=== PATIENT | male | born 1960 | race Caucasian/White ===

== ENCOUNTER 2025-07-01 18:18 | Inpatient (IN) | payer BC ==
[2025-07-01 18:34] VITALS: BMI 21.2
[2025-07-01] MEDS ORDERED: DIPHTH,PERTUSS(ACELL),TET 0.5 ML DISP.SYRIN IM ONE (18:45)
[2025-07-01] MEDS: DIPHTH,PERTUSS(ACELL),TET 0.5 ML DISP.SYRIN IM ONE (18:56)
[2025-07-01 19:21] LABS: ABSOLUTE IMMATURE GRANULOCYTES 0.11 x10^3/uL (0.0-0.031); BASOPHILS # 0.04 x10^3/uL (0.01-0.08); EOSINOPHIL % 0.1 % (0.8-7.0); EOSINOPHILS # 0.01 x10^3/uL (0.04-0.54); MCHC 33.1 g/dl (32.3-36.5); MEAN CELL VOLUME 97.1 fl (79.0-92.2); MEAN PLT VOLUME 10.0 fl (9.4-12.4); MONOCYTE # 0.55 x10^3/uL (0.30-0.82); MONOCYTE % 5.0 % (5.3-12.2); RDW 12.0 % (12.2-16.4)
[2025-07-01 19:29] LABS: INR 1.09 (0.83-1.09); PROTHROMBIN TIME (PATIENT) 11.9 SEC (9.7-13.0)
[2025-07-01 19:42] LABS: GLUCOSE,RANDOM 95.0 mg/dL (74-106); TOT PROT 8.4 g/dl (6.4-8.2)
[2025-07-01 19:44] LABS: CO2 25.0 mmol/L (21-32)
[2025-07-01 19:45] LABS: ALK PHOS 79.0 U/L (40-150)
[2025-07-01 19:48] LABS: CREATININE 1.12 mg/dL (0.55-1.3); SGOT/AST 30.0 U/L (5-34); SGPT/ALT 24.0 U/L (0-55)
[2025-07-01 20:10] LABS: HIV INTERPRETATION NEGATIVE (NEGATIVE)
[2025-07-01 20:11] LABS: ABSOLUTE IMMATURE GRANULOCYTES 0.09 x10^3/uL (0.0-0.031); BASOPHILS # 0.03 x10^3/uL (0.01-0.08); EOSINOPHIL % 0.1 % (0.8-7.0); EOSINOPHILS # 0.01 x10^3/uL (0.04-0.54); MCHC 32.9 g/dl (32.3-36.5); MEAN CELL VOLUME 97.2 fl (79.0-92.2); MEAN PLT VOLUME 9.9 fl (9.4-12.4); MONOCYTE # 0.66 x10^3/uL (0.30-0.82); MONOCYTE % 5.7 % (5.3-12.2); RDW 12.2 % (12.2-16.4)
[2025-07-01] MEDS ORDERED: MORPHINE SULFATE 2 MG/ML SYRINGE ONE (20:11)
[2025-07-01 20:14] LABS: EPI CELLS 3 /uL (0-25.1); HYALINE CASTS 1 /uL (0-3.1); URINE APPEARANCE CLEAR; URINE BACTERIA 3 /uL (0-1359); URINE BILIRUBIN NEGATIVE (NEGATIVE); URINE COLOR YELLOW; URINE GLUCOSE (UA) NEGATIVE (NEGATIVE); URINE KETONE NEGATIVE (NEGATIVE); URINE LEUK ESTERASE NEGATIVE (NEGATIVE); URINE NITRITE NEGATIVE (NEGATIVE); URINE PROTEIN TRACE (NEGATIVE); URINE RBC 14 /uL (0-23.9); URINE UROBILINOGEN 0.2 mg/dL (0.2-1.0); URINE WBC 2 /uL (0-25.8)
[2025-07-01 20:19] LABS: INR 1.11 (0.83-1.09); PROTHROMBIN TIME (PATIENT) 12.1 SEC (9.7-13.0)
[2025-07-01 20:21] LABS: ACTIVATED PTT 26.2 SECONDS (25.2-36.5)
[2025-07-01] MEDS: morphine CARPU-JECT 4 MG/1 ML DISP.SYRIN SQ ONE (20:28)
[2025-07-01] MEDS: ACETAMINOPHEN 1000 MG/100 ML BAG IVPB ONE (20:29)
[2025-07-01 20:30] LABS: GLUCOSE,RANDOM 102.0 mg/dL (74-106)
[2025-07-01] MEDS ORDERED: HALOPERIDOL LACTATE 5 MG/ML ONE (20:30)
[2025-07-01 20:31] LABS: TOT PROT 7.2 g/dl (6.4-8.2)
[2025-07-01 20:32] LABS: CO2 25.0 mmol/L (21-32)
[2025-07-01 20:33] LABS: ALK PHOS 68.0 U/L (40-150)
[2025-07-01 20:36] LABS: CREATININE 1.14 mg/dL (0.55-1.3); SGOT/AST 29.0 U/L (5-34); SGPT/ALT 18.0 U/L (0-55)
[2025-07-01 21:16] LABS: COCAINE, UR NEGATIVE (NEGATIVE)
[2025-07-01 21:17] LABS: OPIATES, URI NEGATIVE (NEGATIVE); PHENCYCLIDINE,URINE NEGATIVE (NEGATIVE); URINE AMPHETAMINES NEGATIVE (NEGATIVE); URINE BARBITURATES NEGATIVE (NEGATIVE); URINE BENZODIAZEPINES POSITIVE (NEGATIVE)
[2025-07-01 21:18] LABS: METHADONE, UR NEGATIVE (NEGATIVE)
[2025-07-01] MEDS: HALOPERIDOL LACTATE 5 MG/ML IM ONE (21:18)
[2025-07-01] MEDS ORDERED: LIDOCAINE HCL 1%, 10 MG/ML (20ML VIAL) ONE (21:28)
[2025-07-01] MEDS: LIDOCAINE HCL 1%, 10 MG/ML (50 mL VIAL) SQ ONE (21:31)
[2025-07-01 22:04] LABS: HCV DIAGNOSTIC IN-HOUSE W/RFLX NON-REACTIVE (NONREACTIVE)
[2025-07-02] MEDS ORDERED: LIDOCAINE HCL 1%, 10 MG/ML (20ML VIAL) ONE ×2 (01:17→01:20)
[2025-07-02] MEDS ORDERED: KETOROLAC TROMETHAMINE 30 MG/1 ML VIAL ONE (02:47)
[2025-07-02] MEDS: LIDOCAINE HCL 1%, 10 MG/ML (50 mL VIAL) INF ONE (02:48)
[2025-07-02] MEDS: KETOROLAC TROMETHAMINE 30 MG/1 ML VIAL IVPUSH ONE (02:57)
[2025-07-02] MEDS ORDERED: ACETAMINOPHEN 1000 MG/100 ML BAG IVPB PRN (05:36)
[2025-07-02 06:45] LABS: MCHC 32.6 g/dl (32.3-36.5); MEAN CELL VOLUME 97.7 fl (79.0-92.2); MEAN PLT VOLUME 10.4 fl (9.4-12.4); RDW 12.5 % (12.2-16.4)
[2025-07-02 07:07] LABS: GLUCOSE,RANDOM 81.0 mg/dL (74-106); TOT PROT 6.6 g/dl (6.4-8.2)
[2025-07-02 07:08] LABS: CO2 24.0 mmol/L (21-32)
[2025-07-02 07:09] LABS: ALK PHOS 69.0 U/L (40-150)
[2025-07-02 07:12] LABS: CREATININE 1.15 mg/dL (0.55-1.3); SGOT/AST 32.0 U/L (5-34); SGPT/ALT 17.0 U/L (0-55)
[2025-07-02] MEDS ORDERED: LORazepam 2 MG/ML SDV VIAL IVPUSH PRN (15:11)
[2025-07-02] MEDS: morphine CARPU-JECT 2 MG/1 ML DISP.SYRIN IVPUSH ONE (16:05)
[2025-07-02] MEDS: ACETAMINOPHEN 500 MG TABLET (FP) PO SCH (16:06)
[2025-07-02] MEDS ORDERED: morphine CARPU-JECT 2 MG/1 ML DISP.SYRIN IVPUSH PRN (17:00)
[2025-07-02] MEDS: KETOROLAC TROMETHAMINE 15 MG/ML VIAL IVPUSH PRN (17:36)
[2025-07-02] MEDS: THIAMINE HCL 200 MG/2 ML VIAL IVPB SCH (21:15)
[2025-07-03 08:42] LABS: ABSOLUTE IMMATURE GRANULOCYTES 0.03 x10^3/uL (0.0-0.031); BASOPHILS # 0.04 x10^3/uL (0.01-0.08); EOSINOPHIL % 2.3 % (0.8-7.0); EOSINOPHILS # 0.17 x10^3/uL (0.04-0.54); MCHC 32.3 g/dl (32.3-36.5); MEAN CELL VOLUME 98.4 fl (79.0-92.2); MEAN PLT VOLUME 10.5 fl (9.4-12.4); MONOCYTE # 0.52 x10^3/uL (0.30-0.82); MONOCYTE % 7.0 % (5.3-12.2); RDW 12.3 % (12.2-16.4)
[2025-07-03] MEDS: FOLIC ACID 1 MG TABLET (FP) PO SCH (09:37)
[2025-07-03 09:44] LABS: GLUCOSE,RANDOM 98.0 mg/dL (74-106)
[2025-07-03 09:46] LABS: CO2 26.0 mmol/L (21-32)
[2025-07-03 09:50] LABS: CREATININE 1.21 mg/dL (0.55-1.3)
[2025-07-04 08:56] LABS: MCHC 32.4 g/dl (32.3-36.5); MEAN CELL VOLUME 98.4 fl (79.0-92.2); MEAN PLT VOLUME 10.3 fl (9.4-12.4); RDW 12.2 % (12.2-16.4)
[2025-07-04 09:46] LABS: GLUCOSE,RANDOM 95.0 mg/dL (74-106); TOT PROT 5.5 g/dl (6.4-8.2)
[2025-07-04 09:47] LABS: CO2 26.0 mmol/L (21-32)
[2025-07-04 09:49] LABS: ALK PHOS 63.0 U/L (40-150)
[2025-07-04 09:52] LABS: CREATININE 1.12 mg/dL (0.55-1.3); SGOT/AST 22.0 U/L (5-34); SGPT/ALT 12.0 U/L (0-55)
[2025-07-04] MEDS ORDERED: ALBUTEROL SO4 2.5/IPRATROPIUM 0.5 INH SOL 3 ML VIAL.NEB. NEB PRN (11:11)
[2025-07-04] MEDS: NICOTINE 14 MG/24 HOURS TOPICAL PATCH TD SCH (11:43)
[2025-07-04] MEDS: THIAMINE 100 MG TABLET PO SCH (11:43)
[2025-07-06 08:49] LABS: MCHC 33.0 g/dl (32.3-36.5); MEAN CELL VOLUME 97.8 fl (79.0-92.2); MEAN PLT VOLUME 10.0 fl (9.4-12.4); RDW 12.1 % (12.2-16.4)
[2025-07-06 09:05] LABS: TOT PROT 6.0 g/dl (6.4-8.2)
[2025-07-06 09:06] LABS: CO2 27.0 mmol/L (21-32)
[2025-07-06 09:07] LABS: ALK PHOS 69.0 U/L (40-150); GLUCOSE,RANDOM 89.0 mg/dL (74-106)
[2025-07-06 09:10] LABS: CREATININE 1.04 mg/dL (0.55-1.3); SGOT/AST 19.0 U/L (5-34); SGPT/ALT 16.0 U/L (0-55)
[2025-07-07] MEDS ORDERED: SODIUM PHOSPHATE/NA BIPHOS 133 ML ENEMA RC PRN (15:18)
[2025-07-08] MEDS: ACETAMINOPHEN 1000 MG/100 ML BAG IVPB PRN (06:47)
[2025-07-08 08:58] LABS: ABSOLUTE IMMATURE GRANULOCYTES 0.03 x10^3/uL (0.0-0.031); BASOPHILS # 0.01 x10^3/uL (0.01-0.08); EOSINOPHIL % 4.0 % (0.8-7.0); EOSINOPHILS # 0.22 x10^3/uL (0.04-0.54); MCHC 32.8 g/dl (32.3-36.5); MEAN CELL VOLUME 97.3 fl (79.0-92.2); MEAN PLT VOLUME 9.8 fl (9.4-12.4); MONOCYTE # 0.41 x10^3/uL (0.30-0.82); MONOCYTE % 7.5 % (5.3-12.2); RDW 11.9 % (12.2-16.4)
[2025-07-08 09:30] LABS: GLUCOSE,RANDOM 131.0 mg/dL (74-106); TOT PROT 5.9 g/dl (6.4-8.2)
[2025-07-08 09:32] LABS: CO2 30.0 mmol/L (21-32)
[2025-07-08 09:33] LABS: ALK PHOS 67.0 U/L (40-150)
[2025-07-08 09:36] LABS: CREATININE 1.05 mg/dL (0.55-1.3); SGOT/AST 16.0 U/L (5-34); SGPT/ALT 13.0 U/L (0-55)
[2025-07-09 08:50] LABS: ABSOLUTE IMMATURE GRANULOCYTES 0.04 x10^3/uL (0.0-0.031); BASOPHILS # 0.02 x10^3/uL (0.01-0.08); EOSINOPHIL % 3.8 % (0.8-7.0); EOSINOPHILS # 0.19 x10^3/uL (0.04-0.54); MCHC 32.6 g/dl (32.3-36.5); MEAN CELL VOLUME 98.9 fl (79.0-92.2); MEAN PLT VOLUME 10.0 fl (9.4-12.4); MONOCYTE # 0.39 x10^3/uL (0.30-0.82); MONOCYTE % 7.8 % (5.3-12.2); RDW 11.9 % (12.2-16.4)
[2025-07-09 09:38] LABS: TOT PROT 5.9 g/dl (6.4-8.2)
[2025-07-09 09:39] LABS: CO2 27.0 mmol/L (21-32)
[2025-07-09 09:41] LABS: ALK PHOS 69.0 U/L (40-150); GLUCOSE,RANDOM 94.0 mg/dL (74-106)
[2025-07-09 09:43] LABS: SGOT/AST 19.0 U/L (5-34); SGPT/ALT 16.0 U/L (0-55)
[2025-07-09 09:44] LABS: CREATININE 1.07 mg/dL (0.55-1.3)
[2025-07-09] MEDS: ACETAMINOPHEN 500 MG TABLET (FP) PO SCH ×2 (11:35→21:43)
[2025-07-09] MEDS: CELECOXIB 200 MG CAPSULE PO SCH (21:43)
[2025-07-11 07:12] LABS: MCHC 31.8 g/dl (32.3-36.5); MEAN CELL VOLUME 100.2 fl (79.0-92.2); MEAN PLT VOLUME 10.1 fl (9.4-12.4); RDW 12.0 % (12.2-16.4)
[2025-07-11 08:06] LABS: GLUCOSE,RANDOM 82.0 mg/dL (74-106)
[2025-07-11 08:08] LABS: CO2 26.0 mmol/L (21-32)
[2025-07-11 08:12] LABS: CREATININE 1.29 mg/dL (0.55-1.3)
[2025-07-11 13:32] VITALS: BP 128/85; PULSE 61; RESP 16; TEMP 99.1
== END 2025-07-11 13:42 | disposition left against medical advice (07) | DRG 200 ==
LOC: EDBD 18:18 → JER 18:18 → JERBED 20:31 → J4S 07-02 06:33
PROVIDERS: ADMIT Internal Medicine; ATTEND Internal Medicine
PROC: 0W9B30Z Drainage of Left Pleural Cavity with Drainage Device, Percutaneous Approach (ICD-10-PCS; principal; 2025-07-01)
PROC: 0WPB30Z Removal of Drainage Device from Left Pleural Cavity, Percutaneous Approach (ICD-10-PCS; 2025-07-09)
DX: S27.0XXA Traumatic pneumothorax, initial encounter (principal); R45.851 Suicidal ideations; S21.112A Laceration without foreign body of left front wall of thorax without penetration into thoracic cavity, initial encounter; F10.120 Alcohol abuse with intoxication, uncomplicated; T79.7XXA Traumatic subcutaneous emphysema, initial encounter; F41.9 Anxiety disorder, unspecified; G47.00 Insomnia, unspecified; R29.6 Repeated falls; R42 Dizziness and giddiness; X58.XXXA Exposure to other specified factors, initial encounter; Y93.89 Activity, other specified; Y92.89 Other specified places as the place of occurrence of the external cause; Y99.8 Other external cause status
CPT/HCPCS: 32557; 36415; 70450-TC; 71045-TC-FY; 71046-TC-FY; 71250-TC; 71260-TC; 72125-TC; 74177-TC; 80048; 80053; 80307; 81003; 83735; 84100; 84484; 85025; 85027; 85610; 85730; 86803; 86850; 86900; 86901; 87086; 87389; 90715; 93005; 93010; 94010; 97116-GP; 97161-GP; 99285-25; Q9967